=== PATIENT | male | born 1965 | race Caucasian/White ===

== ENCOUNTER 2017-04-10 11:11 | Inpatient (IN) | payer OTHER ==
[2017-04-10] MEDS ORDERED: Sodium Chloride 0.9% 2.5 ML Syringe FLUSH PRN ×2 (11:50→12:30)
[2017-04-10] MEDS ORDERED: Sodium Chloride 0.9% 10 ML Syringe FLUSH PRN ×2 (11:50→12:30)
[2017-04-10] MEDS ORDERED: Morphine 2 MG/ML Syringe IVPUSH ONE (11:51)
[2017-04-10] MEDS ORDERED: Ondansetron 4 MG/2 ML SDV IVPUSH ONE (11:51)
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
[2017-04-10] MEDS ORDERED: Insulin Regular, Human 100 Units/ML 10 ML Vial IVPUSH ONE (12:27)
[2017-04-10] MEDS ORDERED: Sodium Chloride 0.9% 1,000 ML IV ONE (12:29)
--- NOTE | 2017-04-10 12:51 | CT ---
EXAMINATION: CT Cervical spine HISTORY: Pain COMPARISON: None TECHNIQUE: Axial CT images obtained through the cervical spine without contrast. Coronal and sagittal reconstructions obtained. FINDINGS: The cervical spinal alignment is normal. The vertebral body heights and disc spaces appear well-maintained. There is no fracture or dislocation. Mild marginal osteophytes are noted. There is p artial fusion of the C2 and C3 vertebral bodies. Mastoid air cells and middle ears are clear. The tem poromandibular joints are symmetric. The paravertebral soft tissues appear normal. The lung apices ar e clear. IMPRESSION: 1. Mild degenerative changes without acute findings.
--- NOTE | 2017-04-10 12:53 | CT ---
EXAMINATION: CT thoracic spine HISTORY: Pain COMPARISON: None TECHNIQUE: Axial CT images obtained through the thoracic spine without contrast. Coronal and sagittal reconstructions obtained. FINDINGS: The visualized lungs are clear. Thoracic spine is normal in alignment. The vertebral body h eights and disc spaces appear well-maintained. There is no fracture or dislocation. Flowing anterior syndesmophytes are noted. Bone mineralization is normal. IMPRESSION: 1. Mild degenerative changes without acute findings.
[2017-04-10] MEDS ORDERED: Morphine 2 MG/ML Syringe IVPUSH PRN (13:29)
[2017-04-10] MEDS ORDERED: Ondansetron 4 MG Tab.DIS PO PRN (13:29)
[2017-04-10] MEDS ORDERED: Temazepam 15 MG Cap PO PRN (13:29)
[2017-04-10] MEDS ORDERED: Docusate Sodium 100 MG Cap PO PRN (13:29)
[2017-04-10] MEDS ORDERED: Acetaminophen 325 MG Tab PO PRN (13:29)
[2017-04-10] MEDS ORDERED: Nicotine 14 MG/24 Hr Patch TRDERM SCH (13:30)
[2017-04-10] MEDS ORDERED: Sodium Chloride 0.9% 1,000 ML IV SCH ×4 (13:30→15:15)
[2017-04-10] MEDS ORDERED: Enoxaparin 40 MG/0.4 ML Syringe SUBCUT SCH (13:30)
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
[2017-04-10] MEDS: oxyCODONE 5 MG Tab PO PRN (16:43)
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
[2017-04-10] MEDS ORDERED: NS + KCl 20mEq/L 1,000 ML IV SCH (17:00)
[2017-04-10 17:49] LABS: CHLORIDE,CL 101 mmol/L (98-110); SODIUM,NA 134 mmol/L (136-146)
[2017-04-10] MEDS ORDERED: Insulin Aspart 100 Units/ML 3 ML Pen SUBCUT SCH (18:15)
[2017-04-10] MEDS: Insulin Aspart 100 Units/ML 3 ML Pen SUBCUT SCH ×2 (18:23→21:05)
[2017-04-10] MEDS: Insulin Glargine,Human Rec. Analog 100 Units/ML 3 ML Pen SUBCUT SCH (18:29)
[2017-04-10 21:32] LABS: CHLORIDE,CL 103 mmol/L (98-110); SODIUM,NA 136 mmol/L (136-146)
[2017-04-11] MEDS: Insulin Aspart 100 Units/ML 3 ML Pen SUBCUT SCH ×3 (00:31→08:29)
[2017-04-11] MEDS: oxyCODONE 5 MG Tab PO PRN ×2 (02:54→08:39)
[2017-04-11 05:40] LABS: CHLORIDE,CL 103 mmol/L (98-110); SODIUM,NA 137 mmol/L (136-146)
[2017-04-11] MEDS ORDERED: Levothyroxine 50 MCG Tab PO SCH (07:30)
[2017-04-11 08:14] VITALS: BP 112/65
[2017-04-11] MEDS: Insulin Glargine,Human Rec. Analog 100 Units/ML 3 ML Pen SUBCUT SCH (08:23)
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
[2017-04-11] MEDS ORDERED: Lisinopril 10 MG Tab PO SCH (09:00)
[2017-04-11] MEDS ORDERED: Citalopram 20 MG Tab PO SCH (09:00)
== END 2017-04-11 09:45 | disposition home or self-care (01) | DRG 639 ==
LOC: MW.ED 11:11 → MW.ICU 13:12
PROVIDERS: ADMIT Internal Medicine; ATTEND Internal Medicine
DX: E10.10 Type 1 diabetes mellitus with ketoacidosis without coma (principal); M54.2 Cervicalgia; V49.88XA Car occupant (driver) (passenger) injured in other specified transport accidents, initial encounter; E78.00 Pure hypercholesterolemia, unspecified; I10 Essential (primary) hypertension; F41.8 Other specified anxiety disorders; F43.10 Post-traumatic stress disorder, unspecified; Z88.0 Allergy status to penicillin; Z88.8 Allergy status to other drugs, medicaments and biological substances; Z79.899 Other long term (current) drug therapy; Z79.4 Long term (current) use of insulin; Z72.0 Tobacco use; Z91.14 Patient's other noncompliance with medication regimen
CPT/HCPCS: 36415; 36600; 72125; 72125-26; 72128; 72128-26; 80048; 80053; 81001; 82009; 82803; 82962; 83036; 83735; 84100; 85025; 93005; 96361; 96365; 96374; 96375; 99283; 99285-25; A9270-GY; J1650; J1815-GY ×2; J2270; J2405; J3480; J7030; J7040

== ENCOUNTER 2017-06-01 09:44 | Day surgery (SDC) | payer OTHER ==
[~2017-06-01 09:44] MED LIST: Lactated Ringers 1,000 ML IV SCH
[2017-06-01] MEDS ORDERED: Propofol 200 MG/20 ML SDV ONE ×2 (11:45→13:19)
[2017-06-01] MEDS ORDERED: Midazolam 1 MG/ML 2 ML SDV ONE (11:45)
[2017-06-01] MEDS ORDERED: fentaNYL 100 MCG/2 ML SDV ONE (11:45)
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
--- NOTE | 2017-06-01 13:42 | PCM.OPNOTE ---
- General Post-Op/Procedure Note Date of Surgery/Procedure: 06/01/17 (c) Operative Procedure(s): colonoscopy Findings: see dict [id number] Pre Op Diagnosis: scrn colonoscopy Post-Op Diagnosis: hemorrhoid Anesthesia Technique: Moderate Sedation Primary Surgeon: Ash Youngblood Condition: Good
--- NOTE | 2017-06-01 14:15 | OR ---
SURGEON: Ash Youngblood MD DATE OF PROCEDURE: 06/01/2017 PREOPERATIVE DIAGNOSIS: Screening colonoscopy. POSTOPERATIVE DIAGNOSIS: External hemorrhoids. PROCEDURE PERFORMED: Colonoscopy. FINDINGS: 1. The patient is easily sedated with CORRECTIONAL SUPERVISOR and Diprivan. The patient is soundly snoring. 2. Bowel prep is left to be desirable, tremendous amount of bubbles. You can hardly see anything without irrigation. Good thing is that, irrigation is able to get rid of most of bubbles, but required constant irrigation, tremendous amount of bubbles. Colon is rather straight forward. Cecum indicated by ileocecal fold, one-to-one indentation, and light immittance and appendiceal orifice is all observed. Mucosa examined upon scope pulling out with constant irrigation, and so this is a compromised study because of the bubbles, but we were able to accomplish it and there were no diverticulosis, polyp, mass, growth, inflammation, stricture, ulceration, bleeding, or AV malformation. The patient does not have internal hemorrhoids. The patient does have a mild very tiny external hemorrhoid. The patient would benefit from a repeat colonoscopy 10 years from today or if clinically indicated otherwise. PROCEDURE IN DETAIL: The patient was taken to the endoscopy room. A time out was called, patient identified, and procedure identified. Diprivan was then administrated. Patient went from awake to sleep, hearing doctor talking or door closing is normal. Perineum inspection and digital examination were then performed. A well- lubricated colonoscope was gently inserted through the rectum, advanced past the rectosigmoid junction, the descending colon, splenic flexure, transverse colon, hepatic flexure, ascending colon, arrived to the cecum. Cecum was identified as dictated in the finding. Then the scope was carefully withdrawn while attention was paid to the mucosal surface for any abnormality. Air will be sucked out during the scope withdrawal. At the rectum, retroflexed to examine any rectal diseases, fistula or hemorrhoids. Patient tolerated procedure well. There were no intraoperative complications, and Dr. Youngblood was present throughout the whole procedure. PRIMARY SURGEON: SECONDARY SURGEON: TELECOMMUNICATOR: REASON TELECOMMUNICATOR WAS NECESSARY: ROLE OF TELECOMMUNICATOR: STEPHANY / SUHAS /[id number]
[2017-06-01 14:37] VITALS: BP 97/71
== END 2017-06-01 14:30 | disposition home or self-care (01) ==
LOC: MW.SDS 09:44
PROVIDERS: ATTEND Surgery
DX: Z12.11 Encounter for screening for malignant neoplasm of colon (principal); K64.4 Residual hemorrhoidal skin tags; E78.00 Pure hypercholesterolemia, unspecified; E11.42 Type 2 diabetes mellitus with diabetic polyneuropathy; F41.9 Anxiety disorder, unspecified; F32.9 Major depressive disorder, single episode, unspecified; F43.10 Post-traumatic stress disorder, unspecified; F17.210 Nicotine dependence, cigarettes, uncomplicated; E66.9 Obesity, unspecified; Z68.33 Body mass index [BMI] 33.0-33.9, adult; Z88.0 Allergy status to penicillin; Z88.1 Allergy status to other antibiotic agents; Z79.4 Long term (current) use of insulin; Z79.899 Other long term (current) drug therapy; Z98.890 Other specified postprocedural states
CPT/HCPCS: 45378; J2250; J3010; 00810; J2704